=== PATIENT | male | born 1940 | race Caucasian/White ===

== ENCOUNTER → 2017-11-13 | Outpatient (CLI) | payer MEDICARE ==
--- NOTE | 2017-11-13 13:46 | XR ---
EXAMINATION TYPE: XR chest 2V DATE OF EXAM: 11/13/2017 COMPARISON: NONE TECHNIQUE: PA and lateral views submitted. HISTORY: Persistent cough FINDINGS: The lungs are clear and there is no pneumothorax, pleural effusion, or focal pneumonia. No overt fa ilure. Hypertrophic and degenerative change of the spine. IMPRESSION: 1. No acute process.
== END | disposition home or self-care (01) ==
LOC: RADXRMAIN 13:25
PROVIDERS: ATTEND Family Medicine
DX: R05 Cough (principal)
CPT/HCPCS: 71046

== ENCOUNTER → 2023-12-24 | Outpatient (CLI) | payer MEDICARE ==
[2023-12-24 16:52] VITALS: BP 134/78; PULSE 72; RESP 16; TEMP 98.1
--- NOTE | 2023-12-24 17:10 | P.SLEEP ---
History of Present Illness DATE: 12/24/2023 CONSULTATION/NEW PATIENT EVALUATION HISTORY OF PRESENT ILLNESS/SLEEP-WAKE EVALUATION: 83-year-old gentleman had b een evaluated in the sleep center for obstructive sleep apnea hypopnea syndrome. Patient has history of obstructive sleep apnea diagnosed about 5 years ago. Patient was on treatment with CPAP but did not use CPAP for several years. SLEEP SCHEDULE: Usually sleep schedule from 9:30 PM to 9 AM. FALLING ASLEEP: Sometimes patient has difficulties with falling asleep, has TV set in bedroom. DURING SLEEP: Patient usually sleeps on the side and back position with snoring and multiple awakenings from sleep up to 4 times. Positive history of restless leg symptoms. No history of hypnogogical hallucinations, sleep paralysis, or cataplexy. DURING THE DAY/WAKE STATE: During the day patient may experience significant sleepiness. [place] sleepiness scale is 0, but patient takes up to 4 naps duri ng the day. PAST MEDICAL HISTORY: Asthma, hypothyroidism, hyperlipidemia, diabetes mellitus, carpal tunnel syndrome, prostate cancer. PAST SURGICAL HISTORY: Prostatectomy for prostate cancer, bilateral knee replacement. MEDICATIONS: Levothyroxine, atorvastatin, montelukast, Humalog, albuterol. SOCIAL HISTORY: Negative for smoking or using alcohol. FAMILY HISTORY: Heart problems, diabetes. REVIEW OF SYSTEMS: Snoring, multiple awakenings from sleep. No fevers. No double vision. No recent chest pain. No shortness of breath. No abdominal pain. No bleeding episodes. No blood in urine. No seizure episodes. PHYSICAL EXAMINATION: GENERAL: A pleasant patient without any distress. VITAL SIGNS: Please see below. HEENT: PERRLA, EOMI. Evaluation of oropharynx showed tongue protrudes midline, low position of soft palate Mallampati 4. NECK: Supple. No JVD. Thyroid is not palpable. 17.5 inches in circumference. LUNGS: Clear to percussion and to auscultation. Good air exchange. No wheezing or rhonchi. HEART: S1, S2 regular. No murmurs, gallops or rubs. ABDOMEN: Soft and nontender. Bowel sounds are present. No organomegaly appreciated. EXTREMITIES: No clubbing or cyanosis. PLATER HELPER: Awake, alert, and oriented x3. Cranial nerves 2 to 7 intact. There is no fasciculation or atrophy noted. No focal deficits observed. ASSESSMENT: 1. Snoring, multiple awakenings from sleep, extremely low position of soft palate, wide neck 17.5 inches in circumference, history of obstructive sleep apnea hypopnea syndrome in the past. Obstructive sleep apnea hypopnea syndrome. 2. Status post prostatectomy for prostate cancer. 3. Asthma. 4. Hyperlipidemia. 5 hypothyroidism. 6 . Diabetes mellitus. 7. Status post bilateral knee replacement. 8. Status post surgical treatment for carpal tunnel syndrome bilaterally. PLAN: 1. Polysomnography for evaluation of patient's breathing during sleep. 2. Following plan after reading sleep study. 3. Preferable position during sleep on the side. 4. No driving if patient feels any sleepiness. Patient is aware of civil and criminal liability for unsafe driving. 5. Sleep hygiene with regular sleep time for at least 7.5-8 jess rs. 6. Watching weight. Thank you very much for referring this patient for consultation. Sincerely, Jordin Damon MD, PhD, FAASM. Diplomat of [place] [employer], Sleep Medicine Board by [employer] [employer] [employer] Project Coordinator Rn of [facility] [place] Past Medical History Past Medical History: Asthma, Cancer, COPD, Diabetes Mellitus, Hyperlipidemia, Hypertension, Thyroid Disorder Additional Past Medical History / Comment(s): HX PROSTATE CANCER, ARTHRITIS, History of Any Multi-Drug Resistant Organisms: None Reported Past Surgical History: Adenoidectomy, Joint Replacement, Orthopedic Surgery, Pacemaker, Tonsillectomy Additional Past Surgical History / Comment(s): BILAT CTR. BILAT TKA. BILAT CATARACTS. PROSTATECTOMY. PENILE IMPLANT FOR INCONTINECE. COLONOSCOPY, BILATERAL KNEES AND HANDS Past Anesthesia/Blood Transfusion Reactions: No Reported Reaction Type of Cardiac Device: Permanent Pacemaker Device Placement Date:: June 30, 2023 Past Psychological History: No Psychological Hx Reported Smoking Status: Never smoker Past Alcohol Use History: None Reported Past Drug Use History: None Reported Medications and Allergies Home Medications Medication Instructions Recorded Confirmed Type Albuterol Sulfate [Proair Hfa] 1 - 2 puff INHALATION Q6HR PRN 01/19/18 History Insulin Lispro Protamin/Lispro 34 unit SQ BID 01/19/18 12/24/23 History [humaLOG Mix 75-25 Kwikpen] Levothyroxine Sodium [Synthroid] 175 mcg PO DAILY 01/19/18 12/24/23 History Atorvastatin [Lipitor] 80 mg PO HS 12/24/23 12/24/23 History DULoxetine HCL [Cymbalta] 30 mg PO BID 12/24/23 12/24/23 History Montelukast [Singulair] 10 mg PO HS 12/24/23 12/24/23 History Allergies Allergy/AdvReac Type Severity Reaction Status Date / Time hydromorphone [From Dilaudid] AdvReac SWEATING Verified 01/19/18 15:46 AND ROOMS SPINS morphine AdvReac SWEATING Verified 01/19/18 15:46 AND ROOMS SPINS Physical Exam Vitals: Vital Signs Temp Pulse Resp BP Pulse Ox 12/24/23 16:32 98.1 F 72 16 134/78 96 Intake and Output 12/24/23 12/24/23 12/24/23 06:59 14:59 22:59 Other: Weight 85.281 kg Sleep Note - Sleep Data ESS Total: 0 - Sleep Note Sleep Note: Temperature: 98.1 F Pulse Rate: 72 Respiratory Rate: 16 Blood Pressure: 134/78 SpO2: 96 Height: 5 ft 5 in Weight: 85.281 kg BMI: Neck Circumference:
== END ==
LOC: 3 N SLEEP 15:36
PROVIDERS: ATTEND Internal Medicine
DX: G47.33 Obstructive sleep apnea (adult) (pediatric) (principal); J45.909 Unspecified asthma, uncomplicated; E78.5 Hyperlipidemia, unspecified; E03.9 Hypothyroidism, unspecified; E11.9 Type 2 diabetes mellitus without complications; G56.03 Carpal tunnel syndrome, bilateral upper limbs; Z85.46 Personal history of malignant neoplasm of prostate; Z98.890 Other specified postprocedural states; Z96.653 Presence of artificial knee joint, bilateral; Z79.890 Hormone replacement therapy; Z79.899 Other long term (current) drug therapy; Z88.5 Allergy status to narcotic agent; Z79.4 Long term (current) use of insulin
CPT/HCPCS: 99211

== ENCOUNTER 2024-01-22 18:47 | Outpatient (CLI) | payer MEDICARE ==
--- NOTE | 2024-01-28 12:35 | P.PCN ---
Description of Procedure: POLYSOMNOGRAPHY REPORT PROCEDURE(S)/DATE(S): Polysomnography 01/22/2024 CLINICAL: Patient has been seen in the sleep center for evaluation of obstructive sleep apnea-hypopnea syndrome. Please see my consultation. Sleep study has been done for evaluation of patient breathing during the sleep. PROCEDURE: The standard montage for clinical polysomnography included the electroencephalogram, the electrooculogram, the mentalis surface electromyography and Lead II cardiography. The respiratory battery consisted of measurements of nasal/buccal air flow, pressure transducer measurements from nose, thoracic and/or abdominal effort and intercostal surface electromyography. Video monitoring has been done to check for any parasomnia events. Nocturnal oxyhemoglobin saturations were obtained by finger oximetry. Step-chew titration with positive airway pressure was utilized to control the respiratory events, if necessary. RESULTS: During the diagnostic sleep study sleep efficiency was extremely short 58.1%. Latency to sleep onset was significantly prolonged to 59.0 min. Sleep architecture showed stage NI extremely high 52.1%, Delta sleep was absent 0%, REM sleep was extremely short 5.1%. Respiratory channel showed 220 obstructive apneas, 0 mixed apneas, 1 central apneas, 54 hypopneas with lowest oxygen level 82%. Total apnea hypopnea index was 61.8. Heart rate was in the range between 56 and 65, average 60. EMG showed 3.1 periodic limb movements per hour with 0 micro-arousals per hour. IMPRESSIONS: 1. Severe obstructive sleep apnea hypopnea syndrome. 2. No significant periodic limb movements have been documented. Please see other impressions from consultation PLAN: 1. The patient will have PAP titration for correction of respiratory abnormalities during the sleep. 2. Losing weight. 3. Sleep hygiene with regular time in bed for at least 7-1/2 hours. 4. No driving if feeling sleepiness. Thank you very much for allowing me to participate in the management of your patient. Sincerely, Jordin Damon MD, PhD, FAASM. Diplomat of [employer], Sleep Medicine Board by [employer] Gang Boss of [facility] [place]
== END 2024-01-23 05:25 | disposition home or self-care (01) ==
LOC: 3 N SLEEP 18:47
PROVIDERS: ATTEND Internal Medicine
DX: G47.33 Obstructive sleep apnea (adult) (pediatric) (principal); Z88.8 Allergy status to other drugs, medicaments and biological substances
CPT/HCPCS: 95810

== ENCOUNTER 2024-03-14 19:27 | Outpatient (CLI) | payer MEDICARE ==
--- NOTE | 2024-03-17 16:41 | P.PCN ---
Description of Procedure: CLINICAL: Titration with positive air pressure has been done for correction of respiratory abnormalities during sleep. DESCRIPTION OF PROCEDURE: The standard montage for clinical polysomnography included the electroencephalogram, the electrocardiogram, the mentalis surface electromyography and Lead II cardiography. The respiratory battery consisted of measurements of nasal /buccal air flow, pressure transducer measurements from the nose, thoracic and /or abdominal effort and intercostal surface electromyography. Video monitoring has been done to check for any parasomnia events. Nocturnal oxyhemoglobin saturations were obtained by finger oximetry. Step-chew titration with positive airway pressure was utilized to control respiratory events. Raw data of sleep recording has been reviewed and is adequate. RESULTS: Sleep efficiency was 70 show 39.5%. Latency to sleep onset was 0 minutes.]. Sleep architecture showed stage N1 significantly increased to 18.1%, Delta sleep was absent 0%, REM sleep was absent 0%. Heart rate was minimum 65 BPM, maximum 76 BPM, average 70 BPM. EMG showed 0 periodic limb movements per hour. PAP titration have been done with CPAP up to the pressure 10 cm H2O. The best results were at the pressure 10 cm H2O. Apnea hypopnea index reduced to 0. IMPRESSION: 1. Obstructive sleep apnea hypopnea syndrome mostly on controle with PAP treatment in non-REM sleep. No REM sleep were documented during titration. 2. No significant periodic limb movements have been documented. Please see other impressions from consultation. PLAN: 1. The patient will have treatment with positive air pressure equipment with the level of pressure AutoPAP 5-12 cm H2O and should use it every night for the whole night. 2. Watching weight. 3. Sleep hygiene with regular time in bed for at least 8 hours. 4. No driving if feeling any sleepiness. 5. I will see the patient for follow up visit to explain the results of the test, recommendations, check compliance with treatment and make any necessary adjustment related to mask fitting, pressure and humidification. Thank you very much for allowing me to participate in the management of your patient. Sincerely, Jordin Damon MD, PhD, FAASM Diplomat of [place] [employer] Sleep Medicine Board of [place] Board of [employer] Medicine Senior Licensing Manager of [facility] [place]
== END 2024-03-15 05:35 | disposition home or self-care (01) ==
LOC: 3 N SLEEP 19:27
PROVIDERS: ATTEND Internal Medicine
DX: G47.30 Sleep apnea, unspecified (principal); Z99.89 Dependence on other enabling machines and devices; Z88.5 Allergy status to narcotic agent
CPT/HCPCS: 95811

== ENCOUNTER → 2024-08-30 | Outpatient (CLI) | payer MEDICARE ==
[2024-08-30 12:11] VITALS: BP 144/75; PULSE 79; RESP 16; TEMP 98.1
--- NOTE | 2024-08-30 12:28 | P.PROGSL ---
Subjective DATE: 08/30/2024 FOLLOW UP VISIT. Patient with obstructive sleep apnea hypopnea syndrome return to sleep center for follow-up visit. Recently patient had sleep study which documented obstructive sleep apnea hypopnea syndrome. Patient received new CPAP unit, today's first visit after he started to use new CPAP equipment. Patient was able to use PAP equipment every night for the whole night. The patient does not have significant problems with the mask, PAP pressure and humidification. [place] sleepiness scale is 1, which is perfect. I checked information from PAP unit. PAP unit pressure 5-12, average 10.6 cm H2O. Usage is 100% for more then 4 hours, average 11 hours per night. Leak is 7.5 l/m, which is in acceptable range. Apnea Hypopnea Index is 2.1, which is normal. MEDICATIONS:1. Levothyroxine 2. Atorvastatin 3. Montelukast 4. Humalog 5. Albuterol During physical exam: GENERAL: A pleasant patient without any distress. VITAL SIGNS: Please see below, weight 204.8 pounds. HEENT: PERRLA, EOMI.low position of soft palate, Mallapati 4 . NECK: Supple. No JVD. LUNGS: Clear to percussion and to auscultation. Good air exchange. No wheezing or rhonchi. HEART: S1, S2 regular. ABDOMEN: Soft and nontender. Obese EXTREMITIES: No clubbing or cyanosis. FINANCIAL ADVISER: Awake, alert, and oriented x3. No focal deficit. Impressions: 1. Obstructive sleep apnea-hypopnea syndrome. Patient demonstrated great compliance with treatment, benefiting from treatment. 2. Diabetes mellitus. 3. Asthma. 4. Hypothyroidism. 5. Hyperlipidemia. 6. Status post prostatectomy for prostate cancer. 7. Status post bilateral knee replacement. 8. Status post surgical treatment for carpal tunnel syndrome bilaterally. Plan: 1. Continue using PAP equipment every night for the whole night. 2. To change air filter at least 1-2 times per month. 3. PAP unit should stay lower then position of the head. 4. Advised patient to remove all remaining water from humidifier canister daily and make it dry after each usage. Refill canister with fresh distilled water before each usage. 5. Sleep hygiene with regular time in bed for at least 8 hours. 6. Precautions related to driving. No driving if feel any sleepiness. 7. I will maintain prescription for PAP supplies including mask, tube, filters. 8. Follow up visit in 8 months or earlier if patient has any problems. 9. Watching and losing weight. Thank you very much for allowing me to participate in the management of your patient. Jordin Damon MD, PhD, FAASM. Diplomat of [place] [employer], Sleep Medicine Board by [place] [employer] Community Health Worker of [facility] [place] Objective - Vital Signs Vital Signs: Vital Signs Temp 98.1 F 08/30/24 12:10 Pulse 79 08/30/24 12:10 Resp 16 08/30/24 12:10 BP 144/75 08/30/24 12:10 Pulse Ox 96 08/30/24 12:10 FiO2 Intake & Output 08/29/24 08/30/24 08/30/24 18:59 06:59 18:59 Weight 92.533 kg Home Medications: Home Medications Medication Instructions Recorded Confirmed Type Albuterol Sulfate [Proair Hfa] 1 - 2 puff INHALATION Q6HR PRN 01/19/18 08/30/24 History Insulin Lispro Protamin/Lispro 34 unit SQ BID 01/19/18 08/30/24 History [humaLOG Mix 75-25 Kwikpen] Levothyroxine Sodium [Synthroid] 175 mcg PO DAILY 01/19/18 08/30/24 History Atorvastatin [Lipitor] 80 mg PO HS 12/24/23 08/30/24 History DULoxetine HCL [Cymbalta] 30 mg PO BID 12/24/23 08/30/24 History Montelukast [Singulair] 10 mg PO HS 12/24/23 08/30/24 History
== END ==
LOC: 3 N SLEEP 11:27
PROVIDERS: ATTEND Internal Medicine
DX: G47.33 Obstructive sleep apnea (adult) (pediatric) (principal); E11.9 Type 2 diabetes mellitus without complications; J45.909 Unspecified asthma, uncomplicated; E03.9 Hypothyroidism, unspecified; E78.5 Hyperlipidemia, unspecified; Z96.653 Presence of artificial knee joint, bilateral; Z98.890 Other specified postprocedural states; Z87.39 Personal history of other diseases of the musculoskeletal system and connective tissue; Z99.89 Dependence on other enabling machines and devices; Z85.46 Personal history of malignant neoplasm of prostate; Z88.5 Allergy status to narcotic agent; Z79.4 Long term (current) use of insulin; Z79.890 Hormone replacement therapy; Z79.899 Other long term (current) drug therapy
CPT/HCPCS: 99212

== ENCOUNTER → 2025-04-28 | Outpatient (CLI) | payer MEDICARE ==
[2025-04-28 11:08] VITALS: BP 143/84; PULSE 80; RESP 20; TEMP 97.7
--- NOTE | 2025-04-28 11:21 | P.PROGSL ---
Subjective DATE: 04/28/2025 FOLLOW UP VISIT. Patient with obstructive sleep apnea hypopnea syndrome return to sleep center for follow-up visit. Information from previous visit have been reviewed. Patient is using PAP equipment every night for the whole night, getting PAP supplies in time. The patient does not have significant problems with the mask, PAP unit and humidification. [place] sleepiness scale is 2, which is normal. I checked information from PAP unit. PAP unit pressure 5-12, average 10.3 cm H2O. Usage is 95% for more then 4 hours, average 9 hours per night. Leak is 5 l/m, which is in acceptable range. Apnea Hypopnea Index is 2.7, which is normal. MEDICATIONS : Duloxetine 30 mg twice a day, levothyroxine 175 mcg once a day, atorvastatin 80 mg once a day, omeprazole 20 mg once a day, montelukast 10 mg once a day, Humalog, fluticasone, Mucinex. During physical exam: GENERAL: A pleasant patient without any distress. VITAL SIGNS: Please see below, weight is 204.2 lbs. HEENT: PERRLA, EOMI.low position of soft palate, Mallapati 4 . NECK: Supple. No JVD. LUNGS: Clear to percussion and to auscultation. Good air exchange. No wheezing or rhonchi. HEART: S1, S2 regular. ABDOMEN: Soft and nontender. Slightly obese EXTREMITIES: No clubbing or cyanosis. CURBSTONE SETTER: Awake, alert, and oriented x3. No focal deficit. Impressions: 1. Obstructive sleep apnea-hypopnea syndrome. Patient demonstrated great compliance with treatment, benefiting from treatment. 2. Obesity, BMI 39.9, no significant changes of weight comparing with the previous visit. 3. Diabetes mellitus, recent hemoglobin A1c according to patient 6.9. 4. Asthma. 5. Hypothyroidism. 6. Hyperlipidemia. 7. History of prostate cancer, status post prostatectomy. 8. Status post bilateral knee replacement. 9. Status post surgical treatment for carpal tunnel syndrome bilaterally. Plan: 1. Continue using PAP equipment every night for the whole night. 2. Sleep hygiene with regular time in bed for at least 7.5-8 hours 3. PAP unit should stay lower then position of the head. 4. Advised patient to remove all remaining water from humidifier canister daily and make it dry after each usage. Refill canister with fresh distilled water before each usage. 5. Watching weight. 6. Precautions related to driving. No driving if feel any sleepiness. 7. I will maintain prescription for PAP supplies including mask, tube, filters. 8. Follow up visit in 8 months or earlier if patient has any problems. Thank you very much for allowing me to participate in the management of your patient. Jordin Damon MD, PhD, FAASM. Diplomat of [place] [employer], Sleep Medicine Board by [place] [employer] Furnace Caretaker of [facility] [place] Objective - Vital Signs Vital Signs: Vital Signs Temp 97.7 F 04/28/25 11:04 Pulse 80 04/28/25 11:04 Resp 20 04/28/25 11:04 BP 143/84 04/28/25 11:04 Pulse Ox 98 04/28/25 11:04 FiO2 Intake & Output 04/27/25 04/28/25 04/28/25 18:59 06:59 18:59 Weight 92.59 kg Home Medications: Home Medications Medication Instructions Recorded Confirmed Type Albuterol Sulfate [Proair Hfa] 1 - 2 puff INHALATION Q6HR PRN 01/19/18 08/30/24 History Insulin Lispro Protamin/Lispro 34 unit SQ BID 01/19/18 08/30/24 History [humaLOG Mix 75-25 Kwikpen] Levothyroxine Sodium [Synthroid] 175 mcg PO DAILY 01/19/18 08/30/24 History Atorvastatin [Lipitor] 80 mg PO HS 12/24/23 08/30/24 History DULoxetine HCL [Cymbalta] 30 mg PO BID 12/24/23 08/30/24 History Montelukast [Singulair] 10 mg PO HS 12/24/23 08/30/24 History
== END ==
LOC: 3 N SLEEP 10:47
PROVIDERS: ATTEND Internal Medicine
DX: G47.33 Obstructive sleep apnea (adult) (pediatric) (principal); E66.9 Obesity, unspecified; E11.9 Type 2 diabetes mellitus without complications; J45.909 Unspecified asthma, uncomplicated; E03.9 Hypothyroidism, unspecified; E78.5 Hyperlipidemia, unspecified; Z85.46 Personal history of malignant neoplasm of prostate; Z96.653 Presence of artificial knee joint, bilateral; Z98.52 Vasectomy status; Z98.890 Other specified postprocedural states; Z68.39 Body mass index [BMI] 39.0-39.9, adult; Z99.89 Dependence on other enabling machines and devices; Z88.5 Allergy status to narcotic agent
CPT/HCPCS: 99212